=== PATIENT | male | born 1960 | race Caucasian/White ===

== ENCOUNTER 2020-05-11 15:27 | Inpatient (IN) | payer BC, SELFPAY ==
[2020-05-11] MEDS ORDERED: MAGNE/ALUM HYDROXD 30 ML UCUP ONE (16:15)
[2020-05-11] MEDS ORDERED: ONDANSETRON 4 MG/2 ML VIAL ONE ×2 (16:15→21:00)
[2020-05-11] MEDS ORDERED: LIDOCAINE VISCOUS 2% SOLN 15 ML UDC ONE (16:15)
[2020-05-11] MEDS ORDERED: FAMOTIDINE 20 MG/2 ML VIAL IV ONE (16:15)
[2020-05-11] MEDS ORDERED: NA CHLORIDE 0.9% 1,000 ML ONE ×2 (16:16→20:37)
[2020-05-11 16:21] LABS: Absolute Lymphocytes (CBC) 1.9 K/uL (0.7-4.9); Hematocrit 51.8 % (39.6-49.0); Lymphocytes % 15.6 % (15.3-44.8); MPV 8.6 fL (7.6-11.3); RBC Red Blood Cell Count 5.52 M/uL (4.33-5.43)
--- NOTE | 2020-05-11 16:40 | RAD REPORT ---
EXAM DESCRIPTION: CT - Abdomen Pelvis W Contrast - 05/11/2020 4:17 pm CLINICAL HISTORY: ABD PAIN COMPARISON: No comparisons TECHNIQUE: Biphasic, helical CT imaging of the abdomen and pelvis was performed following 100 ml non -ionic IV contrast. No oral contrast given. All CT scans are performed using dose optimization technique as appropriate and may include automated exposure control or mA/KV adjustment according to patient size. FINDINGS: No suspicious findings in the lung bases. The liver, spleen, and pancreas show no suspicious findings. Liver attenuation is borderline for fatt y infiltration. Cholecystectomy clips are present. No biliary tree dilatation. Symmetric renal function is seen with no hydronephrosis or suspicious renal mass. No pyelonephritis o r acute parenchymal process. No bladder abnormalities. No adrenal abnormalities. No stomach or small bowel abnormalities. Patient has extensive colonic diverticulosis without diverti culitis. No mass or acute colon process identified. No appendicitis. No free air, free fluid or inflammatory stranding. No mass or bulky lymphadenopathy. Small fat rosie led inguinal hernias present on the left. Right testicle is seen in the right inguinal canal possibly due to patent inguinal canal. No suspicious bony findings. IMPRESSION: Prominent bledsoe diverticulosis without diverticulitis. No acute colon finding identifiable . As detailed above, no acute findings identifiable.
[2020-05-11 16:45] LABS: ALT/SGPT 24 U/L (12-78); AST/SGOT 22 U/L (15-37); Albumin 4.5 g/dL (3.4-5.0); Alkaline Phosphatase 136 U/L (45-117); BUN Blood Urea Nitrogen 12 mg/dL (7-18); Bicarbonate 21 mmol/L (21-32); Bilirubin Direct 0.2 mg/dL (0-0.2); Glucose Level 115 mg/dL (74-106); Lipase 52 U/L (73-393); Potassium 3.7 mmol/L (3.5-5.1); Protein, Total 8.5 g/dL (6.4-8.2); Sodium Level 138 mmol/L (136-145); Troponin (Emerg Dept Use Only) < 0.02 ng/mL (0.0-0.045)
[2020-05-11] MEDS ORDERED: PROMETHAZINE INJ 25 MG/ML AMP ONE ×3 (16:57→22:39)
--- NOTE | 2020-05-11 18:32 | ER ---
Nurse's Notes [facility] Name: Piero Her Age: 59 yrs Sex: Male : 1960 Arrival Date: 05/11/2020 Time: 15:32 Bed 3 Private MD: Diagnosis: Gastritis, unspecified-Alcoholic;Alcohol dependence with withdrawal;Intractable vomiting Presentation: 05/11 15:54 Chief complaint: Patient states: feels like indigestion and a lot of gas X 2 days, also iw has n/v, chills. Coronavirus screen: At this time, the client does not indicate any symptoms associated with coronavirus-19. Ebola Screen: Patient negative for fever greater than or equal to 101.5 degrees Fahrenheit, and additional compatible Ebola Virus Disease symptoms Patient denies exposure to infectious person. Patient denies travel to an Ebola-affected area in the 21 days before illness onset. No symptoms or risks identified at this time. Initial Sepsis Screen: Does the patient meet any 2 criteria? No. Patient's initial sepsis screen is negative. Does the patient have a suspected source of infection? No. Patient's initial sepsis screen is negative. Risk Assessment: Do you want to hurt yourself or someone else? Patient reports no desire to harm self or others. Onset of symptoms was May 09, 2020. 15:54 Method Of Arrival: Ambulatory iw 15:54 Acuity: ISATU 3 iw Historical: - Allergies: 15:57 Codeine; iw - PMHx: 15:57 Hypertension; Diverticulitis; mitral valve prolapse; iw - PSHx: 15:57 Cholecystectomy; iw - Immunization history:: Adult Immunizations not up to date. - Social history:: Smoking status: Patient reports the use of cigarette tobacco products, denies chronic smoking, but will smoke occasionally. - Family history:: not pertinent. - Hospitalizations: : No recent hospitalization is reported. Screenin:32 Abuse screen: Denies threats or abuse. Nutritional screening: No deficits noted. ll1 Tuberculosis screening: No symptoms or risk factors identified. Fall Risk None identified. IV access (20 points). Ambulatory Aid- Crutches/Cane/Walker (15 pts). Gait- Impaired (20 pts.). Mental Status- Overestimates/Forgets Limitations (15 pts.). Total Carpenter Fall Scale indicates High Risk Score (45 or more points). Fall prevention measures have been instituted. Side Rails Up X 2 Frequent Obs/Assessments Occuring As available patient and family educated on Fall Prevention Program and Strategies. Assessment: 16:00 General: Appears distressed, uncomfortable, Behavior is cooperative, appropriate for ll1 age. Pain: Complains of pain in abdomen Quality of pain is described as aching. Neuro: No deficits noted. Cardiovascular: No deficits noted. Respiratory: No deficits noted. GI: Abdomen is round Bowel sounds present X 4 quads. Abd is soft and non tender X 4 quads. Reports lower abdominal pain, upper abdominal pain, gaseousness, intolerance of fluids, intolerance of food, nausea, vomiting, + chills. 17:00 Reassessment: Patient and/or family updated on plan of care and expected duration. Pain ll1 level reassessed. Patient is alert, oriented x 3, equal unlabored respirations, skin warm/dry/pink. Patient states symptoms have not improved. Vital Signs: 15:54 BP 226 / 137; Pulse 70; Resp 18; Temp 97.0; Pulse Ox 100% on R/A; Weight 90.72 kg; iw Height 5 ft. 8 in. (172.72 cm); Pain 10/10; 16:11 BP 227 / 137; Pulse 85; Resp 18; Pulse Ox 100% on R/A; ll1 17:30 BP 209 / 135; Pulse 85; Resp 20; Pulse Ox 100% ; ll1 18:43 BP 178 / 121; Pulse 89; Resp 18; Pulse Ox 98% ; ll1 18:53 BP 211 / 128; Pulse 82; Resp 18; Temp 97.8; Pulse Ox 98% on R/A; Pain 0/10; ll1 20:00 BP 189 / 130; Pulse 88; Resp 18; Pulse Ox 100% on R/A; wh 15:54 Body Mass Index 30.41 (90.72 kg, 172.72 cm) iw ED Course: 15:32 Patient arrived in ED. mr 15:45 Alfredo Sanchez MD is Attending Physician. rn 15:46 Yu Marte, MARA is Primary Nurse. ll1 15:56 Triage completed. iw 16:05 Initial lab(s) drawn, by me, sent to lab. Inserted saline lock: 20 gauge in right dh3 antecubital area, using aseptic technique. Blood collected. 16:17 CT Abd/Pelvis - IV Contrast Only In Process Unspecified. EDMS 16:30 EKG done, by ED staff, reviewed by Alfredo Sanchez MD. 3 17:32 Patient has correct armband on for positive identification. Bed in low position. Call ll1 light in reach. Side rails up X 1. Pulse ox on. NIBP on. 18:30 Gil Ayala is Hospitalizing Provider. rn 20:00 No provider procedures requiring assistance completed. Patient admitted, IV remains in place. 20:00 Arm band placed on. 05/12 07:28 Primary Nurse role handed off by Yu Marte, MARA 07:28 Letty Bryan, MARA is Primary Nurse. rv Administered Medications: 05/11 16:10 Drug: Zofran (Ondansetron) 4 mg Route: IVP; Site: right antecubital; ll1 20:42 Follow up: Response: No adverse reaction 16:11 Drug: Pepcid 20 mg Route: IVP; Site: right antecubital; ll1 20:41 Follow up: Response: No adverse reaction 16:50 Drug: Phenergan 12.5 mg Route: IVP; Site: right antecubital; iw 20:41 Follow up: Response: No adverse reaction 17:00 Drug: GI Cocktail without - (Maalox Suspension 30 ml, Lidocaine Liquid 2 % 15 ll1 ml) {Note: vomited after taking..} Route: PO; 20:41 Follow up: Response: No adverse reaction 17:14 Drug: NS 0.9% 500 ml Route: IV; Rate: bolus; Site: right antecubital; ll1 20:40 Follow up: Response: No adverse reaction; IV Status: Completed infusion 17:30 Drug: Phenergan 12.5 mg Route: IVP; Site: right antecubital; ll1 20:40 Follow up: Response: No adverse reaction 18:42 Drug: Valium 10 mg Route: IVP; Site: right antecubital; ll1 20:40 Follow up: Response: No adverse reaction; RASS: Alert and Calm (0) 19:29 Drug: hydrALAZINE 10 mg Route: IV; Rate: calculated rate; Site: right antecubital; mg2 20:39 Follow up: Response: No adverse reaction; Blood pressure is lowered; IV Status: Completed infusion Outcome: 18:31 Decision to Hospitalize by Provider. rn 20:00 Admitted to ER Hold. Please see [facility] for further documentation. 20:00 Condition: stable 20:00 Instructed on the need for admit. 05/12 10:04 Patient left the ED. Signatures: Dispatcher [employer] EDLetty Agarwal RN Laura Valiente, Orin, RN Alfredo Fair MD MD rn [place], [place] [id number] Brenton Pfeiffer Eliel Titus, RN MARA [facility] [place] Bray RN Yu Liriano RN RN ll1
--- NOTE | 2020-05-11 18:32 | EDPHYS ---
Physician Documentation [facility] Name: Piero Her Age: 59 yrs Sex: Male : 1960 Arrival Date: 05/11/2020 Time: 15:32 Bed 3 Private MD: ED Physician Alfredo Sanchez HPI: 05/11 16:37 This 59 yrs old Male presents to ER via Ambulatory with complaints of rn Abdominal Pain, Vomiting. 16:37 The patient presents to the emergency department with nausea, vomiting, abdominal pain. rn Onset: The symptoms/episode began/occurred 2 day(s) ago. Possible causes: unknown. The symptoms are aggravated by nothing. The symptoms are alleviated by nothing. Severity of symptoms: At their worst the symptoms were moderate in the emergency department the symptoms are unchanged. The patient has not experienced similar symptoms in the past. The patient has not recently seen a physician. Historical: - Allergies: 15:57 Codeine; iw - PMHx: 15:57 Hypertension; Diverticulitis; mitral valve prolapse; iw - PSHx: 15:57 Cholecystectomy; iw - Immunization history:: Adult Immunizations not up to date. - Social history:: Smoking status: Patient reports the use of cigarette tobacco products, denies chronic smoking, but will smoke occasionally. - Family history:: not pertinent. - Hospitalizations: : No recent hospitalization is reported. ROS: 16:37 Constitutional: Negative for fever, chills, and weight loss, Eyes: Negative for injury, rn pain, redness, and discharge, Neck: Negative for injury, pain, and swelling, Cardiovascular: Negative for chest pain, palpitations, and edema, Respiratory: Negative for cough, wheezing, and pleuritic chest pain, Abdomen/GI: Negative for diarrhea, and constipation, MS/Extremity: Negative for injury and deformity, Skin: Negative for injury, rash, and discoloration, Neuro: Negative for headache, numbness, tingling, and seizure. Exam: 16:37 Constitutional: This is a well developed, well nourished patient who is awake, alert, rn and in no acute distress. Head/Face: Normocephalic, atraumatic. ENT: dry MM, no stridor Cardiovascular: Regular rate and rhythm. No pulse deficits. Respiratory: No increased work of breathing, no retractions or nasal flaring. Abdomen/GI: soft, non-tender MS/ Extremity: Pulses equal, no cyanosis. Neurovascular intact. Full, normal range of motion. Equal circumference. Neuro: Awake and alert, GCS 15 Vital Signs: 15:54 BP 226 / 137; Pulse 70; Resp 18; Temp 97.0; Pulse Ox 100% on R/A; Weight 90.72 kg; iw Height 5 ft. 8 in. (172.72 cm); Pain 10/10; 16:11 BP 227 / 137; Pulse 85; Resp 18; Pulse Ox 100% on R/A; ll1 17:30 BP 209 / 135; Pulse 85; Resp 20; Pulse Ox 100% ; ll1 18:43 BP 178 / 121; Pulse 89; Resp 18; Pulse Ox 98% ; ll1 18:53 BP 211 / 128; Pulse 82; Resp 18; Temp 97.8; Pulse Ox 98% on R/A; Pain 0/10; ll1 20:00 BP 189 / 130; Pulse 88; Resp 18; Pulse Ox 100% on R/A; wh 15:54 Body Mass Index 30.41 (90.72 kg, 172.72 cm) iw MDM: 15:45 Patient medically screened. rn 17:41 Differential diagnosis: Nonspecific abd pain, gastritis, pancreatitis, viral rn gastroenteritis, gastroenteritis. Data reviewed: vital signs, nurses notes, lab test result(s), radiologic studies, CT scan. Counseling: I had a detailed discussion with the patient and/or guardian regarding: the historical points, exam findings, and any diagnostic results supporting the discharge/admit diagnosis, lab results, radiology results. ED course: Family reports lately has increased alcoholic drinks, with that news, epigastric pain, gallbladder removed, and no acute findings on CT, most likely etiology is Alcoholic gastritis. UNable to control emesis at this point, told family and patient might have to observe overnight until emesis controlled. . 18:29 Admission orders: after a detailed discussion of the patient's condition and case, the rn coronary care unit orders are written by me. ED course: Patient more altered than earlier, may be phenergan, but also son states drinks about a 12 pack of beer per day, is likely starting to withdraw from ETOH given intractable vomiting. Admitted to Hospitalist service for alcoholic gastritis and intractable vomiting with ETOH withdrawal. . 05/11 15:53 Order name: Basic Metabolic Panel; Complete Time: 17:04 rn 05/11 15:53 Order name: CBC with Diff; Complete Time: 16:36 rn 05/11 15:53 Order name: Hepatic Function; Complete Time: 17:04 rn 05/11 15:53 Order name: Lipase; Complete Time: 17:04 rn 05/11 15:53 Order name: Troponin (emerg Dept Use Only); Complete Time: 17:04 rn 05/11 16:55 Order name: CREATININE WHOLE BLOOD; Complete Time: 17:04 EDMS 05/11 15:53 Order name: CT Abd/Pelvis - IV Contrast Only; Complete Time: 17:04 rn 05/11 17:01 Order name: Urine Dipstick--Ancillary (enter results); Complete Time: 18:58 bd 05/11 19:08 Order name: Comprehensive Metabolic Panel; Complete Time: 07:01 EDMS 05/12 05:01 Order name: CBC with Automated Diff; Complete Time: 07:01 EDMS 05/12 05:04 Order name: Liver (Hepatic) Function; Complete Time: 07:01 EDMS 05/12 05:04 Order name: Lipid Profile; Complete Time: 07:01 EDMS 05/12 05:04 Order name: Magnesium; Complete Time: 07:01 EDMS 05/12 05:33 Order name: Manual Differential; Complete Time: 07:01 EDMS 05/11 15:53 Order name: IV Saline Lock; Complete Time: 16:07 rn 05/11 15:53 Order name: Labs collected and sent; Complete Time: 16:07 rn 05/11 15:53 Order name: EKG; Complete Time: 15:54 rn 05/11 15:53 Order name: EKG - Nurse/Tech; Complete Time: 16:46 rn 05/11 20:09 Order name: CT; Complete Time: 07:01 EDMS Administered Medications: 16:10 Drug: Zofran (Ondansetron) 4 mg Route: IVP; Site: right antecubital; ll1 20:42 Follow up: Response: No adverse reaction wh 16:11 Drug: Pepcid 20 mg Route: IVP; Site: right antecubital; ll1 20:41 Follow up: Response: No adverse reaction wh 16:50 Drug: Phenergan 12.5 mg Route: IVP; Site: right antecubital; iw 20:41 Follow up: Response: No adverse reaction 17:00 Drug: GI Cocktail without - (Maalox Suspension 30 ml, Lidocaine Liquid 2 % 15 ll1 ml) {Note: vomited after taking..} Route: PO; 20:41 Follow up: Response: No adverse reaction 17:14 Drug: NS 0.9% 500 ml Route: IV; Rate: bolus; Site: right antecubital; ll1 20:40 Follow up: Response: No adverse reaction; IV Status: Completed infusion 17:30 Drug: Phenergan 12.5 mg Route: IVP; Site: right antecubital; ll1 20:40 Follow up: Response: No adverse reaction 18:42 Drug: Valium 10 mg Route: IVP; Site: right antecubital; ll1 20:40 Follow up: Response: No adverse reaction; RASS: Alert and Calm (0) 19:29 Drug: hydrALAZINE 10 mg Route: IV; Rate: calculated rate; Site: right antecubital; mg2 20:39 Follow up: Response: No adverse reaction; Blood pressure is lowered; IV Status: Completed infusion Disposition: 05/11/20 18:31 Hospitalization ordered by Gil Ayala for Inpatient Admission. Preliminary diagnosis are Gastritis, unspecified - Alcoholic, Alcohol dependence with withdrawal, Intractable vomiting. - Bed requested for Telemetry/MedSurg (Inpatient). - Status is Inpatient Admission. sv - Condition is Stable. - Problem is new. - Symptoms are unchanged. Signatures: Dispatcher [employer] EDMS Yin Daniel Stephanie, RN RN sv Ballard, Brenda, RN RN bb Orin Gordon RN RN iw Nieto, Roman, MD MD rn Gardose, Michele, RN RN mg2 Yu Marte RN RN ll1 Brenton Pfeiffer Corrections: (The following items were deleted from the chart) 19:06 18:31 Hospitalization Ordered by Gil Ayala for Inpatient Admission. Preliminary rn diagnosis is Gastritis, unspecified - Alcoholic; Alcohol dependence with withdrawal; Intractable vomiting. Bed requested for Telemetry/MedSurg (Inpatient). Status is Inpatient Admission. Condition is Stable. Problem is new. Symptoms are unchanged. rn 20:23 19:06 05/11/2020 18:31 Hospitalization Ordered by Gil Ayala for Inpatient bb Admission. Preliminary diagnosis is Gastritis, unspecified - Alcoholic; Alcohol dependence with withdrawal; Intractable vomiting. Bed requested for Intensive Care Unit. Status is Inpatient Admission. Condition is Stable. Problem is new. Symptoms are unchanged. rn 05/12 09:05 05/11 20:23 05/11/2020 18:31 Hospitalization Ordered by Gil Ayala for Inpatient bd Admission. Preliminary diagnosis is Gastritis, unspecified - Alcoholic; Alcohol dependence with withdrawal; Intractable vomiting. Bed requested for [facility] ER HOLD. Status is Inpatient Admission. Condition is Stable. Problem is new. Symptoms are unchanged. bb 05/12 10:04 09:05 05/11/2020 18:31 Hospitalization Ordered by Gil Ayala for Inpatient sv Admission. Preliminary diagnosis is Gastritis, unspecified - Alcoholic; Alcohol dependence with withdrawal; Intractable vomiting. Bed requested for Telemetry/MedSurg (Inpatient). Status is Inpatient Admission. Condition is Stable. Problem is new. Symptoms are unchanged. bd
[2020-05-11 18:42] LABS: Urine Blood TRACE (NEG); Urine Glucose NEGATIVE (NEG); Urine Protein NEGATIVE (NEG); Urine Specific Gravity 1.015 (1.005-1.030); Urine pH 7.5 (5.0-7.0)
[2020-05-11] MEDS ORDERED: DIAZEPAM 10 MG/2 ML INJ SYRINGE ONE (18:49)
[2020-05-11] MEDS ORDERED: FLUMAZENIL 0.1 MG/ML (5 mL VIAL) IV PRN (19:15)
[2020-05-11] MEDS ORDERED: HALOPERIDOL LACT 5 MG/ML INJ IM PRN (19:15)
[2020-05-11] MEDS ORDERED: LORazepam 2 MG/ML VIAL IV PRN (19:15)
[2020-05-11] MEDS ORDERED: HYDRALAZINE HCL 20 MG/ML VIAL ONE (19:32)
[2020-05-11] MEDS ORDERED: Nicardipine in Saline, Iso-Osm 20 MG/200 ML IV.SOLN. IV PRN (19:34)
[2020-05-11 19:56] VITALS: BMI 30.4
[2020-05-11] MEDS: NA CHLORIDE 0.9% 1,000 ML IV SCH (20:00)
--- NOTE | 2020-05-11 20:06 | RAD REPORT ---
EXAM DESCRIPTION: CT - Head Brain Wo Cont - 05/11/2020 7:59 pm CLINICAL HISTORY: AMS COMPARISON: No comparisons TECHNIQUE: Axial 5 mm thick images of the head were obtained without IV contrast. All CT scans are performed using dose optimization technique as appropriate and may include automated exposure control or mA/KV adjustment according to patient size. FINDINGS: No intracranial hemorrhage, mass, edema or shift of mid-line structures. No acute infarcti on changes seen. No abnormal extra-axial fluid collections. Ventricles are normal. Mastoid air cells and visualized portions of the paranasal sinuses are clear. No acute bony findings. IMPRESSION: Negative non-contrast CT head examination.
[2020-05-11] MEDS: lisinopriL 20 MG TAB PO SCH (20:32)
[2020-05-11] MEDS ORDERED: lisinopriL 20 MG TAB ONE (20:36)
[2020-05-11] MEDS: ONDANSETRON 4 MG/2 ML VIAL IV PRN (20:51)
[2020-05-11] MEDS ORDERED: SIMETHICONE 80 MG TAB PO ONE (20:57)
--- NOTE | 2020-05-11 20:57 | P.HP ---
Certification for Inpatient With expected LOS: >2 Midnights Patient will require the following post-hospital care: None Practitioner: I am a practitioner with admitting privileges, knowledge of patient current condition, hospital course, and medical plan of care. Services: Services provided to patient in accordance with Admission requirements found in Title 42 Section 412.3 of the Code of Federal Regulations <Luis Bernard - Last Filed: 05/11/20 21:02> Patient History Date of Service: 05/11/20 Reason for admission: AMS/alcohol gastritis History of Present Illness: A 59-year-old male with a past medical history of hypertension, depression and PTSD as well as noncompliance with medications is brought to the emergency room with complaints of nausea/vomiting and abdominal pain. States it has been ongoing for the past 2 days. Per family members patient has also been consuming excessive amounts of alcohol shortly after his divorce 4 years ago. Son states the patient drinks 3-4 beers in the morning before going to work and then will drink all night. States he does this every day. Estimates the patient drinks greater than a 12 pack of beer per day. In the emergency room patient is noted to be confused. Having difficulty maintaining his thought process. Ex also states that the patient has been taking over the counter pain medication and Tums. States the patient used to drink a lot of alcohol in the past but quit. Patient started drinking alcohol again a few months after their divorce. Ex- also states the patient stopped taking his blood pressure medications and other medications almost 4 years ago. Has been very noncompliant with medications. Emergency room he is awake and alert but has difficulty with his thought process. His GCS score is 15. He is also noted to be in a hypertensive urgency. Last blood pressure was 189/130 down from 226/137. Patient denies any headache numbness tingling or seizure act ivity. He does have some initiation of likely alcohol withdrawal symptoms. Son states that his last known drink was earlier today. Patient will be placed in ICU and further evaluated. Home medications list reviewed: No - Past Medical/Surgical History Diabetic: No -: Depression -: PTSD -: Hypertension -: Alcohol abuse -: Noncompliance with medication -: Cholecystectomy Psychosocial/ Personal History: Lives at home with son. - Family History Family History: Reviewed- Non-Contributory - Social History Smoking Status: Never smoker Alcohol use: Yes CD- Drugs: No Caffeine use: No Place of Residence: Home <Luis Bernard - Last Filed: 05/11/20 21:02> Date of Service: 05/12/20 <francisco j aldrich - Last Filed: 05/12/20 14:24> Allergies codeine Adverse Reaction (Verified 05/11/20 19:58) Nausea/Vomiting Review of Systems General: As per HPI Eyes: Unremarkable ENT: Unremarkable Respiratory: Unremarkable Cardiovascular: Unremarkable Gastrointestinal: Nausea, Vomiting, Abdominal Pain Genitourinary: Unremarkable Musculoskeletal: Unremarkable Integumentary: Unremarkable Neurological: Unremarkable Lymphatics: Unremarkable <Luis Bernard - Last Filed: 05/11/20 21:02> Physical Examination - Vital Signs Temperature: 97.0 F Blood Pressure: 189/130 Pulse: 86 Respirations: 18 Pulse Ox (%): 100 (RA) - Physical Exam General: Alert, In no apparent distress, Oriented x3 HEENT: Atraumatic, Normocephalic, PERRLA, Mucous membr. moist/pink Neck: Supple, No Thyromegaly, Other (Trachea midline) Respiratory: Clear to auscultation bilaterally, Normal air movement Cardiovascular: No edema, Normal pulses Capillary refill: <2 Seconds Gastrointestinal: Normal bowel sounds, Soft and benign, Non-distended, Tenderness (Epigastric, mild with palpation) Musculoskeletal: No clubbing, No swelling, No contractures, No erythema Integumentary: No rashes, No breakdown, No significant lesion, No tenderness/swelling Neurological: Normal gait, Normal speech, Normal strength at 5/5 x4 extr - Studies Laboratory Data (last 24 hrs) 05/11/20 16:05: WBC 12.2 H, Hgb 17.6, Hct 51.8 H, Plt Count 280 05/11/20 16:05: Sodium 138, Potassium 3.7, BUN 12, Creatinine 1.65 H, Glucose 115 H, Total Bilirubin 1.0, AST 22, ALT 24, Alkaline Phosphatase 136 H, Lipase 52 L <Luis Bernard - Last Filed: 05/11/20 21:02> - Studies Laboratory Data (last 24 hrs) 05/11/20 16:05: WBC 12.2 H, Hgb 17.6, Hct 51.8 H, Plt Count 280 05/11/20 16:05: Sodium 138, Potassium 3.7, BUN 12, Creatinine 1.65 H, Glucose 115 H, Total Bilirubin 1.0, AST 22, ALT 24, Alkaline Phosphatase 136 H, Lipase 52 L <francisco j aldrich - Last Filed: 05/12/20 14:24> Assessment and Plan - Plan Impression: Altered mental status likely secondary to alcohol abuse: Hypertensive urgency: Abdominal pain likely secondary to alcoholic gastritis: Nausea vomiting: Noncompliance with medications: Plan: Altered mental status likely secondary to alcohol abuse: History of alcohol abuse. Will monitor for withdrawals. Will start CIWA protocols. Continuous telemetry. Hypertensive urgency: Will start Cardene drip if necessary. Will resume home medication of lisinopril 20 mg daily. Will order hydralazine 10 mg q.4 hr p.r.n. for systolic blood pressure greater than 160 and diastolic blood pressure greater than 100. Will monitor blood pressure and reduce slowly. Abdominal pain likely secondary to alcoholic gastritis: Will continue IV Zofran. Will start folic acid, thiamine and multi vitamin. Gentle IV hydration. Monitor. Nausea vomiting: Continue Zofran as above and gentle IV hydration. Noncompliance with medications: History of noncompliance with home medications. Counseled. Emergency contact is ex - Abi Goff Discharge Plan: Home - Advance Directives Does patient have a Living Will: No Does patient have a Durable POA for Healthcare: No - Code Status/Comfort Care Code Status Assessed: Yes Time Spent Managing Pts Care (In Minutes): 55 <Luis Bernard - Last Filed: 05/11/20 21:02> Physician Review: Patient Assessed, Agree with Above Assessment and Plan Physician Review Additional Text: Altered mental status-could be secondary to alcohol intoxication. Alcohol gastritis Hypertensive urgency Plan: Check alcohol level. Blood pressure has responded to Cardene drip. Protonix. Monitor for alcohol withdrawal. <francisco j aldrich - Last Filed: 05/12/20 14:24>
[2020-05-11] MEDS ORDERED: Nicardipine/NS 25 MG/250 ML KIT IV ONE (21:11)
[2020-05-11] MEDS ORDERED: NA CHLORIDE 0.9% IV PRN (22:00)
[2020-05-11] MEDS ORDERED: NICARDIPINE HCL IV PRN (22:00)
[2020-05-11] MEDS ORDERED: LORazepam 2 MG/ML VIAL ONE ×2 (22:29→22:32)
[2020-05-12] MEDS: HEPARIN 5000 UNIT/ML 1 ML VIAL SQ SCH ×3 (01:00→17:14)
[2020-05-12] MEDS ORDERED: HYDRALAZINE HCL 20 MG/ML VIAL ONE ×2 (01:00→06:15)
[2020-05-12] MEDS: HYDRALAZINE HCL 20 MG/ML VIAL IV PRN ×2 (01:08→06:06)
[2020-05-12] MEDS ORDERED: HEPARIN 5000 UNIT/ML 1 ML VIAL ONE ×2 (01:16→09:58)
[2020-05-12 04:44] LABS: Absolute Lymphocytes (CBC) 0.6 K/uL (0.7-4.9); Basophils % 0.2 % (0-1.3); Hematocrit 48.3 % (39.6-49.0); Lymphocytes % 5.5 % (15.3-44.8); MPV 8.1 fL (7.6-11.3); RBC Red Blood Cell Count 5.11 M/uL (4.33-5.43)
[2020-05-12 05:03] LABS: Bilirubin Direct 0.2 mg/dL (0-0.2); Bilirubin Total 0.7 mg/dL (0.2-1.0)
[2020-05-12 05:04] LABS: Magnesium 2.5 mg/dL (1.8-2.4); Potassium 3.8 mmol/L (3.5-5.1)
[2020-05-12 05:33] LABS: Blood Morphology Comment NOT SEEN (NOT SEEN); Platelet Estimate ADEQ
[2020-05-12] MEDS ORDERED: NA CHLORIDE 0.9% 1,000 ML ONE (05:44)
[2020-05-12] MEDS: NA CHLORIDE 0.9% 1,000 ML IV SCH ×3 (05:59→20:51)
[2020-05-12] MEDS: THIAMINE 200 MG/2 ML INJ IVP SCH (09:00)
[2020-05-12] MEDS ORDERED: POTASSIUM CL SA 10 MEQ TAB PO ONE ×2 (09:00→09:59)
[2020-05-12] MEDS ORDERED: THIAMINE 200 MG/2 ML INJ ONE (09:58)
[2020-05-12] MEDS ORDERED: MULTIVITAMIN TAB PO ONE (09:58)
[2020-05-12] MEDS ORDERED: FOLIC ACID 1 MG TABLET ONE (09:58)
[2020-05-12] MEDS ORDERED: lisinopriL 20 MG TAB ONE (09:59)
--- NOTE | 2020-05-12 12:17 | EKG ---
Test Date: 2020-05-11 Test Time: 16:40:30 Security System Sales Consultant: [employer] MEASUREMENT RESULTS: Intervals: Rate: 84 DE: 140 QRSD: 82 QT: 388 QTc: 458 [place]: P: 68 DE: 140 QRS: 64 T: 64 INTERPRETIVE STATEMENTS: Normal sinus rhythm Possible Left atrial enlargement Left ventricular hypertrophy Abnormal ECG Compared to ECG 12/30/2008 17:18:28 Left ventricular hypertrophy now present Electronically Signed On 05-12-20 12:15:09 CDT by Morris Pickens
[2020-05-12] MEDS: lisinopriL 20 MG TAB PO SCH (13:25)
[2020-05-12] MEDS: MULTIVITAMIN TAB PO SCH (13:27)
[2020-05-12] MEDS: PANTOPRAZOLE 40MG TABLET PO SCH ×2 (13:27→16:30)
[2020-05-12] MEDS: FOLIC ACID 1 MG TABLET PO SCH (13:27)
--- NOTE | 2020-05-12 14:27 | P.PN ---
Subjective Date of Service: 05/12/20 Chief Complaint: AMS/alcohol gastritis Patient still somnolent. Blood pressure has improved. Cardene drip has been weaned off. Physical Examination - Vital Signs Temperature: 98.9 F Blood Pressure: 132/84 Pulse: 95 Respirations: 15 Pulse Ox (%): 95 - Physical Exam General: In no apparent distress, Confused HEENT: Mucous membr. moist/pink Neck: Supple Respiratory: Clear to auscultation bilaterally, Normal air movement Cardiovascular: No edema, Regular rate/rhythm, Normal S1 S2 Capillary refill: <2 Seconds Gastrointestinal: Normal bowel sounds, Soft and benign, No tenderness Musculoskeletal: No swelling, No erythema Integumentary: No rashes Neurological: Normal strength at 5/5 x4 extr - Studies Laboratory Data (last 24 hrs) 05/11/20 16:05: WBC 12.2 H, Hgb 17.6, Hct 51.8 H, Plt Count 280 05/11/20 16:05: Sodium 138, Potassium 3.7, BUN 12, Creatinine 1.65 H, Glucose 115 H, Total Bilirubin 1.0, AST 22, ALT 24, Alkaline Phosphatase 136 H, Lipase 52 L Assessment And Plan - Current Problems (Diagnosis) (1) Metabolic encephalopathy Current Visit: Yes Status: Acute (2) Alcoholic gastritis Current Visit: Yes Status: Acute (3) Hypertensive urgency Current Visit: Yes Status: Acute (4) Chronic kidney disease, stage 3 Current Visit: Yes Status: Acute - Plan Continue IV hydration. CIWA initiated. Protonix for gastritis Neuro checks Awaiting alcohol level. Patient is currently normotensive. Continue lisinopril. Physician Review: Patient Assessed, Agree with Above Assessment and Plan
[2020-05-13] MEDS: HEPARIN 5000 UNIT/ML 1 ML VIAL SQ SCH ×3 (00:04→17:13)
[2020-05-13] MEDS: HYDRALAZINE HCL 20 MG/ML VIAL IV PRN ×3 (00:05→19:32)
[2020-05-13] MEDS: NA CHLORIDE 0.9% 1,000 ML IV SCH ×4 (01:59→22:00)
[2020-05-13] MEDS: HYDROCODONE/APAP 5/325 MG TAB PO PRN ×2 (02:28→11:27)
[2020-05-13 06:17] LABS: Absolute Lymphocytes (CBC) 1.7 K/uL (0.7-4.9); Basophils % 0.7 % (0-1.3); Hematocrit 46.7 % (39.6-49.0); Lymphocytes % 17.3 % (15.3-44.8); MPV 8.3 fL (7.6-11.3); RBC Red Blood Cell Count 4.92 M/uL (4.33-5.43)
[2020-05-13 06:27] LABS: Potassium 3.8 mmol/L (3.5-5.1)
[2020-05-13] MEDS: ONDANSETRON 4 MG/2 ML VIAL IV PRN ×2 (08:28→17:13)
[2020-05-13] MEDS: THIAMINE 200 MG/2 ML INJ IVP SCH (08:28)
[2020-05-13] MEDS: PANTOPRAZOLE 40MG TABLET PO SCH (08:30)
[2020-05-13] MEDS: lisinopriL 20 MG TAB PO SCH (08:30)
[2020-05-13] MEDS: FOLIC ACID 1 MG TABLET PO SCH (08:30)
[2020-05-13] MEDS: MULTIVITAMIN TAB PO SCH (08:38)
[2020-05-13] MEDS ORDERED: POTASSIUM CL SA 10 MEQ TAB PO ONE (09:00)
[2020-05-13] MEDS: SUCRALFATE 1 GM TABLET PO SCH ×3 (11:27→22:26)
--- NOTE | 2020-05-13 11:27 | P.PN ---
Subjective Date of Service: 05/13/20 Chief Complaint: AMS/alcohol gastritis Patient is awake today. He is complaining of abdominal discomfort, nausea and vomit and belching. Blood pressure readings fluctuates. Occasionally very high. Physical Examination - Vital Signs Temperature: 98.5 F Blood Pressure: 159/93 Pulse: 74 Respirations: 18 Pulse Ox (%): 97 - Physical Exam General: Alert, In no apparent distress, Oriented x3 HEENT: Mucous membr. moist/pink Respiratory: Clear to auscultation bilaterally, Normal air movement Cardiovascular: No edema, Regular rate/rhythm, Normal S1 S2 Gastrointestinal: Normal bowel sounds, Soft and benign, No tenderness Musculoskeletal: No swelling, No erythema Integumentary: No rashes Neurological: Other (Nonfocal) Assessment And Plan - Current Problems (Diagnosis) (1) Metabolic encephalopathy Current Visit: Yes Status: Acute (2) Alcoholic gastritis Current Visit: Yes Status: Acute (3) Hypertensive urgency Current Visit: Yes Status: Acute (4) Chronic kidney disease, stage 3 Current Visit: Yes Status: Acute - Plan Continue IV hydration. CIWA initiated. Protonix IV and sucralfate for gastritis. Feeding as tolerated. Awaiting alcohol level less than 10. Monitor for alcohol withdrawal. Continue lisinopril. Hydralazine IV p.r.n. for BP spikes. Physician Review: Patient Assessed, Agree with Above Assessment and Plan
[2020-05-14] MEDS: HEPARIN 5000 UNIT/ML 1 ML VIAL SQ SCH ×3 (00:19→16:24)
[2020-05-14] MEDS: ONDANSETRON 4 MG/2 ML VIAL IV PRN ×3 (03:25→16:23)
[2020-05-14] MEDS ORDERED: LORazepam 2 MG/ML VIAL IV PRN (03:30)
[2020-05-14 04:41] LABS: Potassium 3.4 mmol/L (3.5-5.1)
[2020-05-14] MEDS: NA CHLORIDE 0.9% 1,000 ML IV SCH ×4 (04:42→17:49)
[2020-05-14] MEDS: HYDRALAZINE HCL 20 MG/ML VIAL IV PRN ×4 (04:43→16:22)
[2020-05-14] MEDS: HYDROCODONE/APAP 5/325 MG TAB PO PRN (07:32)
[2020-05-14] MEDS ORDERED: POTASSIUM CL SA 10 MEQ TAB PO ONE (09:00)
[2020-05-14] MEDS: SUCRALFATE 1 GM TABLET PO SCH ×2 (09:32→11:50)
[2020-05-14] MEDS: THIAMINE 200 MG/2 ML INJ IVP SCH (09:32)
[2020-05-14] MEDS: lisinopriL 20 MG TAB PO SCH (09:33)
[2020-05-14] MEDS: MULTIVITAMIN TAB PO SCH (09:33)
[2020-05-14] MEDS: FOLIC ACID 1 MG TABLET PO SCH (09:33)
--- NOTE | 2020-05-14 15:00 | P.PN ---
Subjective Date of Service: 05/14/20 Chief Complaint: AMS/alcohol gastritis Patient states he feels better than yesterday. He has been experiencing intermittent nausea and belching and requiring frequent IV Zofran. Physical Examination - Vital Signs Temperature: 98.8 F Blood Pressure: 110/70 Pulse: 85 Respirations: 20 Pulse Ox (%): 97 - Physical Exam General: Alert, In no apparent distress HEENT: Mucous membr. moist/pink Respiratory: Clear to auscultation bilaterally, Normal air movement Cardiovascular: No edema, Regular rate/rhythm, Normal S1 S2 Gastrointestinal: Normal bowel sounds, Soft and benign, Non-distended, No tenderness Musculoskeletal: No swelling, No tenderness Integumentary: No rashes Neurological: Normal speech, Normal strength at 5/5 x4 extr Assessment And Plan - Current Problems (Diagnosis) (1) Metabolic encephalopathy Current Visit: Yes Status: Acute (2) Alcoholic gastritis Current Visit: Yes Status: Acute (3) Hypertensive urgency Current Visit: Yes Status: Acute (4) Chronic kidney disease, stage 3 Current Visit: Yes Status: Acute - Plan Continue IV hydration. No sign or symptoms of of alcohol withdrawal as of now. CIWA initiated. Protonix IV and sucralfate for gastritis. Feeding as tolerated. Monitor for alcohol withdrawal. Continue lisinopril. Hydralazine IV p.r.n. for BP spikes.
[2020-05-14] MEDS: SUCRALFATE 1GM/10ML UCUP FT SCH ×2 (16:35→21:00)
[2020-05-14] MEDS: AMLODIPINE 5 MG TAB PO SCH (17:27)
[2020-05-14] MEDS: NICOTINE 14 MG/PAT TD SCH (17:27)
[2020-05-15] MEDS: ONDANSETRON 4 MG/2 ML VIAL IV PRN ×2 (00:50→05:40)
[2020-05-15] MEDS: HEPARIN 5000 UNIT/ML 1 ML VIAL SQ SCH ×3 (00:52→16:07)
[2020-05-15] MEDS: NA CHLORIDE 0.9% 1,000 ML IV SCH ×3 (02:46→16:03)
[2020-05-15] MEDS: HYDRALAZINE HCL 20 MG/ML VIAL IV PRN ×2 (05:49→09:20)
[2020-05-15 06:19] LABS: Potassium 3.9 mmol/L (3.5-5.1)
[2020-05-15] MEDS: SUCRALFATE 1GM/10ML UCUP FT SCH ×3 (07:30→16:02)
[2020-05-15] MEDS: AMLODIPINE 5 MG TAB PO SCH (09:00)
[2020-05-15] MEDS: MULTIVITAMIN TAB PO SCH (09:00)
[2020-05-15] MEDS: lisinopriL 20 MG TAB PO SCH (09:00)
[2020-05-15] MEDS: THIAMINE 200 MG/2 ML INJ IVP SCH (09:00)
[2020-05-15] MEDS: FOLIC ACID 1 MG TABLET PO SCH (09:00)
[2020-05-15] MEDS: NICOTINE 14 MG/PAT TD SCH (09:20)
[2020-05-15] MEDS ORDERED: POTASSIUM CL SA 10 MEQ TAB PO ONE (13:00)
--- NOTE | 2020-05-15 13:04 | P.PN ---
Subjective Date of Service: 05/16/20 Chief Complaint: AMS/alcohol gastritis Patient still not tolerating feeding. He has been gagging and vomits and complaining of nausea. His blood pressure has also been fluctuating. Physical Examination - Vital Signs Temperature: 98 F Blood Pressure: 177/95 Pulse: 110 Respirations: 18 Pulse Ox (%): 98 - Physical Exam General: Alert, Moderate distress HEENT: Mucous membr. moist/pink Neck: Supple, JVD not distended, No Thyromegaly Respiratory: Clear to auscultation bilaterally, Normal air movement Cardiovascular: No edema, Normal S1 S2, Other (Tachycardia) Gastrointestinal: Normal bowel sounds, Soft and benign, No tenderness Musculoskeletal: No swelling, No erythema Integumentary: No rashes Neurological: Normal speech, Normal strength at 5/5 x4 extr Assessment And Plan - Current Problems (Diagnosis) (1) Metabolic encephalopathy Status: Acute (2) Alcoholic gastritis Status: Acute (3) Hypertensive urgency Status: Acute (4) Chronic kidney disease, stage 3 Status: Acute - Plan Continue IV hydration. No sign or symptoms of of alcohol withdrawal as of now. CIWA initiated. Patient is still with significant symptoms of gagging and vomiting. Would get barium swallow to evaluate the esophagus Protonix IV and sucralfate for gastritis. Feeding as tolerated. Monitor for alcohol withdrawal. Continue lisinopril. Amlodipine added to control his blood pressure. Hydralazine IV p.r.n. for BP spikes.
--- NOTE | 2020-05-15 13:22 | RAD REPORT ---
EXAM DESCRIPTION: RAD - Esophagram Only - 05/15/2020 11:44 am CLINICAL HISTORY: Difficulty swallowing/vomiting COMPARISON: None FINDINGS: Small hiatal hernia is present. Gastroesophageal reflux is present extending to the mid thoracic esophagus. No obstructing lesions. Several webs are present within the distal esophagus. No permanent filling defects Fluoroscopy time 0.4 minutes. Fourteen fluoroscopic spot images obtained IMPRESSION: A small hiatal hernia Gastroesophageal reflux Distal esophageal webs
[2020-05-15 16:24] VITALS: O2SAT 97
[2020-05-16 07:58] VITALS: BP 177/95; TEMP 98
[2020-05-16] MEDS ORDERED: AMLODIPINE 10 MG TAB PO SCH (09:00)
--- NOTE | 2020-05-17 13:05 | P.DS ---
Admission Date: 05/11/20 Discharge Date: 05/15/20 Disposition: TRANSFER TO [facility] Discharge Condition: FAIR Reason for Admission: AMS/alcohol gastritis - Problems (1) Metabolic encephalopathy Status: Acute (2) Alcoholic gastritis Status: Acute (3) Hypertensive urgency Status: Acute (4) Chronic kidney disease, stage 3 Status: Acute Brief History of Present Illness: 59-year-old gentleman with a history hypertension, chronic alcoholism presented to the emergency department with a complaint of nausea and vomiting and abdominal pain. Patient stated he had not been able to hold any food or drink in. Family history reported patient recently started drinking heavily. Patient blood pressure was severely elevated in the ED. He was started on nicardipine drip and admitted for further management. Hospital Course: Patient suspected to have alcoholic gastritis. He was also diagnosis hypertensive urgency. He was treated with nicardipine drip for hypertensive urgency, and IV protonix for the alcoholic gastritis. Noted patient has a prior history of peptic ulcer disease, history of peptic ulcer bleeding in the past. His symptoms did not improve with IV Protonix and sucralfate. Patient had dysphagia and regurgitation. Barium swallow was done which reported several webs in the distal esophagus. [facility] was contacted, I spoke to GI and the hospitalist configuration engineer who accepted patient for transfer. He had no sign or symptoms of alcohol withdrawal. Patient vitals are stable for transfer. Vital Signs/Physical Exam: Temp Pulse Resp BP Pulse Ox 98 F 110 H 18 177/95 H 98 05/16/20 07:57 05/16/20 07:57 05/16/20 07:57 05/16/20 07:57 05/16/20 07:57 General: Alert, Moderate distress Respiratory: Clear to auscultation bilaterally, Normal air movement Cardiovascular: No edema, Regular rate/rhythm, Normal S1 S2 Gastrointestinal: Normal bowel sounds, Soft and benign, Non-distended, No tenderness Musculoskeletal: No swelling, No erythema Integumentary: No rashes Neurological: Normal speech, Normal strength at 5/5 x4 extr Laboratory Data at Discharge: WBC 10.0 K/uL (4.3-10.9) 05/13/20 05:55 Hgb 15.9 g/dL (13.6-17.9) 05/13/20 05:55 Hct 46.7 % (39.6-49.0) 05/13/20 05:55 Plt Count 211 K/uL (152-406) 05/13/20 05:55 Sodium 136 mmol/L (136-145) 05/15/20 04:46 Potassium 3.9 mmol/L (3.5-5.1) 05/15/20 04:46 BUN 11 mg/dL (7-18) 05/15/20 04:46 Creatinine 1.47 mg/dL (0.55-1.3) H 05/15/20 04:46 Glucose 94 mg/dL (74-106) 05/15/20 04:46 Magnesium 2.4 mg/dL (1.8-2.4) 05/15/20 04:46 Total Bilirubin 0.7 mg/dL (0.2-1.0) 05/12/20 04:20 AST 20 U/L (15-37) 05/12/20 04:20 ALT 20 U/L (12-78) 05/12/20 04:20 Alkaline Phosphatase 117 U/L (45-117) 05/12/20 04:20 Triglycerides 73 mg/dL (<150) 05/12/20 04:20 Cholesterol 184 mg/dL (<200) 05/12/20 04:20 HDL Cholesterol 66 mg/dL (40-60) H 05/12/20 04:20 Cholesterol/HDL Ratio 2.79 05/12/20 04:20 Lipase 52 U/L (73-393) L 05/11/20 16:05 Home Medications: NK [No Home Meds] 05/11/20 Time spent managing pt's care (in minutes): 46
== END 2020-05-15 21:13 | disposition short-term general hospital (02) | DRG 391 ==
LOC: ER 15:27 → ERHOLD 19:02 → 2ND 05-12 09:24
PROVIDERS: ADMIT Internal Medicine; ATTEND Internal Medicine
DX: K29.20 Alcoholic gastritis without bleeding (principal); G93.41 Metabolic encephalopathy; F10.129 Alcohol abuse with intoxication, unspecified; I16.0 Hypertensive urgency; F10.10 Alcohol abuse, uncomplicated; I12.9 Hypertensive chronic kidney disease with stage 1 through stage 4 chronic kidney disease, or unspecified chronic kidney disease; N18.3 Chronic kidney disease, stage 3 (moderate); R11.2 Nausea with vomiting, unspecified; Z88.5 Allergy status to narcotic agent; Z91.14 Patient's other noncompliance with medication regimen; Z90.49 Acquired absence of other specified parts of digestive tract; Z20.828 Contact with and (suspected) exposure to other viral communicable diseases
CPT/HCPCS: 36415; 70450; 74177; 74220; 80048; 80053; 80061; 80076; 80320; 81003; 82248; 82565; 83690; 83735; 84132; 84484; 85025; 93005; 96361; 96365; 96375; 99285; J0360; J1644; J2405; J2550; J3360; J3411; J7030; Q9967; U0002